=== PATIENT | female | born 1980 | race Caucasian/White ===

== ENCOUNTER 2016-06-27 10:30 | Emergency (ER) | payer OTHER ==
[2016-06-27 10:55] VITALS: BP 120/83
[2016-06-27] MEDS ORDERED: Tetan/Diph/Pertus SYR(Tdap)* 0.5 ML SYR(BOOSTRIX) use SYR IM ONE (12:18)
--- NOTE | 2016-06-27 12:42 | UC ---
Trisha Casanova Rebecca, scribed for Bouchra Lyn MD on 06/27/16 at 1127 . Respiratory Complaint HPI - HPI Summary HPI Summary: Pt is a 36 y/o F presents to [facility] c/o with cough. Sx began 2 days ago and have been constant since onset. Pain is ranked 7/10 when coughing. Cough is nonproductive. Sx aggravated and alleviated by nothing. Additionally c/o sinus pressure and L ear pain. Denies sore throat. Received flu vaccine this year. Pt is accompanied by her and 3 sons, all of whom are also ill. One of them was treated with the Z-Pac, which alleviated his sx. Pt reports that last time she had similar sx, Augmentin did not help, whereas the Z-Pac did. SHx current light occasional smoker. LNMP 06/08/2015 (on a patch for contraception). Reports she has medication to treat the cough. Agrees to take Sudafed. - History of Current Complaint Chief Complaint: UCRespiratory Stated Complaint: SINUS AND EAR ISSUE Hx Obtained From: Patient Hx Last Menstrual Period: 06/08/2015 ON PATCH FOR CONTRACEPTION Onset/Duration: Sudden Onset, Lasting Days - 2 days, Still Present Timing: Constant Severity Initially: Severe Severity Currently: Severe Pain Intensity: 7 Pain Scale Used: 0-10 Numeric Character: Cough: Nonproductive Aggravating Factors: Nothing Alleviating Factors: Nothing Associated Signs And Symptoms: Positive: Pleuritic Chest Pain - with cough, URI , Nasal Congestion, Sinus Discomfort - Risk Factors Pulmonary Embolism Risk Factors: Negative Cardiac Risk Factors: Negative Pseudomonas Risk Factors: Negative Tuberculosis Risk Factors: Negative - Allergies/Home Medications Allergies/Adverse Reactions: Allergies Allergy/AdvReac Type Severity Reaction Status Date / Time Clindamycin Allergy Severe VOMITING, Verified 06/27/16 10:45 [facility] PMH/Surg Hx/FS Hx/Imm Hx Cardiovascular History Of: Reports: Cardiac Disorders - asymptomatic heart murmur GI/ History Of: Denies: Gastroesophageal Reflux, Ulcer - Surgical History Surgical History: Yes Surgery Procedure, Year, and Place: right knee - Family History Known Family History: Positive: Hypertension, Diabetes - Social History Occupation: Unemployed Lives: With Family Alcohol Use: None Substance Use Type: None Smoking Status (MU): Light Every Day Tobacco Smoker Type: Cigarettes Amount Used/How Often: 1-2 CIG/DAY Length of Time of Smoking/Using Tobacco: 18+ YEARS Have You Smoked in the Last Year: Yes Household Exposure Type: Cigarettes - Immunization History Most Recent Influenza Vaccination: THINKS SHE GOT FLU SHOT IN 2015 Most Recent Tetanus Shot: 10/18/14 Most Recent Pneumonia Vaccination: none Review of Systems ENT: Ear Ache - Left, Other - Sinus pressure Respiratory: Cough - Nonproductive Cardiovascular: Chest Pain - with cough All Other Systems Reviewed And Are Negative: Yes Physical Exam Triage Information Reviewed: Yes Appearance: No Pain Distress, Well-Nourished, Ill-Appearing - mild Vital Signs: Initial Vital Signs Temp 98.7 F 06/27/16 10:47 Pulse 68 06/27/16 10:47 Resp 16 06/27/16 10:47 BP 120/83 06/27/16 10:47 Pulse Ox 97 06/27/16 10:47 Vital Signs Reviewed: Yes Eyes: Positive: Conjunctiva Clear ENT: Positive: Pharyngeal erythema, TM red - left Neck: Positive: Supple, Nontender, No Lymphadenopathy Respiratory: Positive: Lungs clear, Normal breath sounds, No respiratory distress Cardiovascular: Positive: RRR, No Murmur, Pulses Normal, Brisk Capillary Refill Musculoskeletal: Positive: Strength Intact, ROM Intact Neurological: Positive: Alert, Muscle Tone Normal Psychological Exam: Normal Skin Exam: Normal UC Diagnostic Evaluation - Laboratory O2 Sat by Pulse Oximetry: 97 Respiratory Course/Dx - Differential Dx/Diagnosis Differential Diagnosis/HQI/PQRI: Bronchitis, Influenza, Lower Resp Infection, Sinusitis, Other - otitis media Provider Diagnoses: acute left OM. sinusitis Discharge - Discharge Plan Condition: Stable Disposition: HOME Prescriptions: Azithromycin TAB* [Zithromax TAB (Z-YONG) 250 mg #6 tabs] 2 tab PO .TODAY, THEN 1 DAILY #1 yong Pseudoephedrine TAB* [Sudafed TAB*] 30 mg PO Q6H PRN #20 tab PRN Reason: Congestion Patient Education Materials: Sinusitis (ED), Otitis Media (ED) Referrals: Jez Bui MD [Primary Care Provider] - Additional Instructions: RETURN TO URGENT CARE FOR ANY RETURNING OR WORSENING SYMPTOMS. The documentation as recorded by the Trisha zuniga Rebecca accurately reflects the service I personally performed and the decisions made by , Bouchra Lyn MD.
== END 2016-06-27 12:00 | disposition home or self-care (01) ==
LOC: UCEAST 10:30
DX: H66.92 Otitis media, unspecified, left ear (principal); J32.9 Chronic sinusitis, unspecified; R07.81 Pleurodynia; Z88.1 Allergy status to other antibiotic agents; F17.210 Nicotine dependence, cigarettes, uncomplicated
CPT/HCPCS: 90715; 99212; G0463

== ENCOUNTER 2016-07-15 16:14 | Emergency (ER) | payer OTHER ==
[2016-07-15 16:35] VITALS: BP 120/75
[2016-07-15] MEDS ORDERED: Ibuprofen TAB* 600 MG PO ONE (16:38)
--- NOTE | 2016-07-15 17:20 | UC ---
Lower Extremity/Ankle HPI - HPI Summary HPI Summary: FELL DOWN STAIRS THIS MORNING ABOUT 8AM AND RIGHT ANKLE GOT CAUGHT UP BEHIND HER AND TWISTED. HAS PAIN WITH AMBULATION LATERALLY. - History of Current Complaint Chief Complaint: UCLowerExtremity Stated Complaint: ANKLE INJURY Time Seen by Provider: 07/15/16 17:06 Hx Obtained From: Patient Hx Last Menstrual Period: 06/08/2015 ON PATCH FOR CONTRACEPTION Onset/Duration: Sudden Onset, Lasting Hours, Still Present Severity Initially: Moderate Severity Currently: Moderate Pain Intensity: 8 Pain Scale Used: 0-10 Numeric Aggravating Factor(s): Standing, Ambulation Alleviating Factor(s): Rest Able to Bear Weight: Yes - Allergies/Home Medications Allergies/Adverse Reactions: Allergies Allergy/AdvReac Type Severity Reaction Status Date / Time Clindamycin Allergy Severe VOMITING, Verified 07/15/16 16:29 [facility] PMH/Surg Hx/FS Hx/Imm Hx Endocrine History Of: Denies: Diabetes, Thyroid Disease Cardiovascular History Of: Reports: Cardiac Disorders - asymptomatic heart murmur Denies: Hypertension Respiratory History Of: Denies: COPD, Asthma GI/ History Of: Denies: Gastroesophageal Reflux, Ulcer - Surgical History Surgical History: Yes Surgery Procedure, Year, and Place: right knee - Family History Known Family History: Positive: Hypertension, Diabetes - Social History Alcohol Use: None Substance Use Type: None Smoking Status (MU): Light Every Day Tobacco Smoker Type: Cigarettes Amount Used/How Often: 1-2 CIG/DAY Length of Time of Smoking/Using Tobacco: 18+ YEARS Have You Smoked in the Last Year: Yes Household Exposure Type: Cigarettes - Immunization History Most Recent Influenza Vaccination: 2015 Most Recent Tetanus Shot: 10/18/14 Most Recent Pneumonia Vaccination: none Review of Systems Constitutional: Negative Skin: Negative Respiratory: Negative Cardiovascular: Negative Gastrointestinal: Negative Musculoskeletal: Arthralgia, Decreased ROM All Other Systems Reviewed And Are Negative: Yes Physical Exam Triage Information Reviewed: Yes Appearance: Well-Appearing, No Pain Distress, Well-Nourished Vital Signs: Initial Vital Signs Temp 98.6 F 07/15/16 16:31 Pulse 73 07/15/16 16:31 Resp 18 07/15/16 16:31 BP 120/75 07/15/16 16:31 Pulse Ox 98 07/15/16 16:31 Vital Signs Reviewed: Yes Eyes: Positive: Conjunctiva Clear ENT: Positive: Hearing grossly normal Neck: Positive: Supple Respiratory: Positive: No respiratory distress, No accessory muscle use Cardiovascular: Positive: Pulses Normal Abdomen Description: Positive: Soft Musculoskeletal: Positive: No Edema, ROM Limited @ - RIGHT ANKLE, Other: - MILDLY TENDER RIGHT ANKLE MALLEOLAR ZONE AND LATERAL MALLEOLUS Neurological: Positive: Alert Psychological: Positive: Normal Response To Family, Age Appropriate Behavior Skin: Negative: rashes Diagnostics - Radiology RIGHT ANKLE XRAY Xray Interpretation: No Acute Changes Radiology Interpretation Completed By: Radiologist Lower Extremity Course/Dx - Differential Dx/Diagnosis Provider Diagnoses: RIGHT ANKLE SPRAIN Discharge - Discharge Plan Condition: Stable Disposition: HOME Patient Education Materials: Ankle Sprain (ED) Referrals: Jez Bui MD [Primary Care Provider] - If Needed Additional Instructions: REST, ICE, COMPRESS, ELEVATE. KY[place], GEL SPLINT AND CRUTCHES NEEDED. OTC MEDS FOR DISCOMFORT.
--- NOTE | 2016-07-15 17:36 | RAD ---
INDICATION: Right ankle pain COMPARISON: None TECHNIQUE: AP, lateral, and oblique views were obtained. FINDINGS: The bony structures, joint spaces, and soft tissues are normal for age. IMPRESSION: NEGATIVE EXAMINATION.
== END 2016-07-15 18:04 | disposition home or self-care (01) ==
LOC: UCEAST 16:14
DX: S93.401A Sprain of unspecified ligament of right ankle, initial encounter (principal); W10.9XXA Fall (on) (from) unspecified stairs and steps, initial encounter; Y93.9 Activity, unspecified; Y92.9 Unspecified place or not applicable; Z88.1 Allergy status to other antibiotic agents; F17.210 Nicotine dependence, cigarettes, uncomplicated
CPT/HCPCS: 99213; A9270-GY; G0463